=== PATIENT | male | born 1955 | race Caucasian/White ===

== ENCOUNTER 2024-09-14 13:48 | Emergency (ER) | payer MEDICARE, OTHER, SELFPAY ==
[2024-09-14 13:50] VITALS: BP 119/76
[2024-09-14 14:17] LABS: % Basophils 0.8 % (0-2); % Eosinophils 2.9 % (0-6); % Immature Granulocytes 0.3 % (0-0.5); % Lymphocytes 37.5 % (20.5-51.1); % Monocytes 7.5 % (1.7-9.3); Absolute Basophils 0.1 10^3/uL (0-0.2); Absolute Eosinophils 0.2 10^3/uL (0-0.7); Absolute Lymphocytes 2.9 10^3/uL (1.2-3.4); Absolute Monocytes 0.6 10^3/uL (0.1-0.6); Hematocrit 42.2 % (39.0-52.0); Hemoglobin 14.7 g/dL (13.0-18.0); Mean Corp Hgb Conc. 34.8 g/dL (33.0-37.0); Mean Corpuscular Hgb 32.2 pg (27.0-31.0); Mean Corpuscular Volume 92.3 fL (80.0-94.0); Mean Platelet Volume 10.3 fL (7.4-10.4); Nucleated Red Blood Cells % 0 % (-); Platelet Count 141 10^3/uL (130-400); Red Blood Cell Count 4.57 10^6/uL (4.70-6.10); Red Cell Dist. Width 12.7 % (11.5-14.5); White Blood Cell Count 7.8 10^3/uL (4.8-10.8)
[2024-09-14 14:30] LABS: ALT (SGPT) 19 U/L (0-50); AST (SGOT) 22 U/L (17-59); Alkaline Phosphatase 58 U/L (38-126); Blood Urea Nitrogen 19 mg/dl (9-20); Carbon Dioxide 25 mmol/L (22-30); Chloride 105 mmol/L (98-107); Glucose 103 mg/dl (70-99); Potassium 4.6 mmol/L (3.5-5.1); Sodium 134 mmol/L (135-145); Total Bilirubin 0.8 mg/dl (0.2-1.3); Total Protein 6.4 g/dl (6.3-8.2); Urine Albumin Negative (Neg - Trace); Urine Bilirubin Negative (Negative); Urine Character Clear (Clear); Urine Color Yellow; Urine Glucose 4+ (Negative); Urine Ketone Negative (Negative); Urine Leukocyte Negative (Negative); Urine Nitrite Negative (Negative); Urine Occult Blood Negative (Negative); Urine Specific Gravity 1.015 (<1.030); Urine Urobilinogen Negative (Neg - 1+); eGFR > 60.00
--- NOTE | 2024-09-14 15:27 | ED.GENMED ---
History of Present Illness
General
Chief Complaint: Male Genito-Urinary Symptoms
Source: patient
Exam Limitations: none
Time Seen by Provider: 09/14/24 15:22
Nursing documentation reviewed up to this point in time: agreed with
History of Present Illness
History of Present Illness:
69-year-old male with history of CHF, HTN, HLD has a pacemaker and defibrillator, presents for left testicular pain and 'a little discomfort' in the right testicle. He denies fever or chills. Denies difficulty or pain with urination. He is moving
his bowels normally. He denies abdominal pain.
6 days ago he started a new routine doing 300 sit ups a day when he was only used to doing 'a lot less' per day.
Past History
Past History
ED Past Medical History: CHF, HTN and Hypercholesterolemia
ED Past Surgical History: Cardiac (Defibrillator, pacemaker)
Social History
Tobacco: Non-smoker
Alcohol: None
Living: with family
Employment: Employed
Review of Systems
Review of Systems
Allergies reviewed?: Yes
All Other Systems: ROS reviewed and negative except as documented in HPI and ROS
Constitutional: Denies fever
Cardiac: Denies chest pain
ABD/GI: Denies abdominal pain, nausea or vomiting
: Reports other (pain left testicle); Denies dysuria, frequency, flank pain, incontinence, difficulty voiding, urgency, bleeding, dark urine or discharge
Musculoskeletal: Reports no symptoms
Skin: Reports no symptoms
Neurological: Reports no symptoms
Phy Exam
Physical Exam
Physical Exam:
GENERAL: No acute distress. A&Ox3.
CONSTITUTIONAL: Afebrile.
RESPIRATORY: Regular respirations, nonlabored, lungs clear.
CARDIOVASCULAR: Regular rate and rhythm, no murmurs, no rubs.
GI: Soft, nontender, normal BS
: Circumcised, normal-appearing external genitalia
MUSCULOSKELETAL: Moves with ease. Well perfused.
SKIN: Warm, dry, pink
PSYCH: Normal mood and affect. Well kept, interactive and appropriate
NEUROLOGIC: Awake, alert and oriented. No focal neurological deficits
Course
Orders/Labs/Results
Orders:
Orders
09/14/24 13:54
Scrotum US [US Scrotum] Urgent
Comment:
Reason For Exam: L testicular pain
09/14/24 14:02
Complete Blood Count/With Diff Urgent
Comprehensive Metabolic Panel Urgent
Urinalysis Reflex To Culture Urgent
Date Specimen was Collected: 09/14/24
Time Specimen was Collected: 13:54
Abnormal Lab Results
09/14/24
14:02
RBC 4.57 L 10^6/uL
(4.70-6.10)
MCH 32.2 H pg
(27.0-31.0)
Sodium 134 L mmol/L
(135-145)
Glucose 103 H mg/dl
(70-99)
Urine Glucose 4+ A
(Negative)
09/14/24 14:02
09/14/24 14:02
Vital Signs
Initial and Last Documented VS:
Initial Vital Signs
Temp Pulse Resp BP Pulse Ox
98.7 F 64 16 119/76 96
09/14/24 13:50 09/14/24 13:50 09/14/24 13:50 09/14/24 13:50 09/14/24 13:50
Last Documented Vital Signs
Temp Pulse Resp BP Pulse Ox
98.7 F 64 16 119/76 96
09/14/24 13:50 09/14/24 13:50 09/14/24 13:50 09/14/24 13:50 09/14/24 13:50
MDM/Problems Addressed
Differential Diagnosis Includes:
testicular torsion, epididymitis, UTI,
MDM/Problems Addressed:
69-year-old male with history of CHF, HTN, HLD has a pacemaker and defibrillator, presents for left testicular pain and 'a little discomfort' in the right testicle. He denies fever or chills. Denies difficulty or pain with urination. He is moving
his bowels normally. He denies abdominal pain.
6 days ago he started a new routine doing 300 sit ups a day when he was only used to doing 'a lot less' per day.
Scrotal US radiology report read: IMPRESSION:
1. No evidence of testicular torsion, hyperemia, or testicular mass.
2. Small bilateral hydroceles.
3. Right epididymal head cysts measure up to 1.2 cm in diameter.
U/A neg
CBC, CMP unremarkable
Pt notified of results.
OOB and ambulating well
Unremarkable physical exam
Stable for discharge
*Critical Care Note
Total Time (30-74mins, 75-104mins- exclusive of procedures): Not Applicable
ED Attending Note
-
Portions of this chart may have been created with voice recognition software.� Occasional wrong word or��sound alike� substitutions may have occurred due to the inherent limitations of voice recognition software.
Discharge Plan
Departure
Patient Disposition: Home (Routine Discharge)
Date of Disposition: 09/14/24
Time of Disposition: 15:36
Patient with high blood pressure during this ER visit?: No
Condition: Good
Discharge Problem:
Left testicular pain
Instructions: Testicular Injury
Referrals:
Pratik oGel MD [Active] - As needed
Activity Restrictions/Additional Instructions:
As we discussed, you most likely overuse the muscles of and surrounding the testicles with your intense workouts.
Nothing worrisome in your workup here today.
Tylenol or ibuprofen as needed for pain
I have provided you with the name of a urologist to use if your symptoms are not much improved or gone within the next 10 days
Avoid strenuous workouts until your pain is better
Interventions
Interventions:
*Risk Screen - Suicide Last Done: 09/14/24 13:50
*General Assessment Last Done: 09/14/24 13:50
*Neglect/Abuse Screening Last Done: 09/14/24 13:50
*ED COVID-19 Vaccine History Last Done: 09/14/24 15:49
*Nursing Disposition Last Done: 09/14/24 15:49
ED-Male Genitourinary Assessment Last Done: 09/14/24 15:48
Discharge Date and Time
Discharge Date/Time: 09/14/24 15:49
Print Language: AUSTR[place]
== END 2024-09-14 15:49 | disposition home or self-care (01) ==
LOC: EMR 13:48
PROVIDERS: Emergency Medicine; EMERGENCY PHYSICIAN Emergency Medicine; FAMILY PHYSICIAN Internal Medicine
DX: N50.812 Left testicular pain (principal); I11.0 Hypertensive heart disease with heart failure; I50.9 Heart failure, unspecified; E78.00 Pure hypercholesterolemia, unspecified; Z95.810 Presence of automatic (implantable) cardiac defibrillator
CPT/HCPCS: 99284; 76870; 80053; 81003; 85025; 93976